=== PATIENT | male | born 1995 | race Caucasian/White ===

== ENCOUNTER 2017-06-17 19:45 | Emergency (ER) | payer OTHER ==
[~2017-06-17] VITALS: Ht 188 cm; Wt 96.0 kg
[~2017-06-17 19:45] MED LIST: HYDR-3533 PO; IBUP800T23 PO; SULF1TAB47 PO; TAMS0.4C67 PO
[2017-06-17 19:47] VITALS: BP 179/95; PULSE 104; RESP 18; TEMP 98.3; O2SAT 100
[2017-06-17] MEDS ORDERED: SODIUM CHLORID 0.9% 500 ML INJ 500 ML IV ONE (20:15)
[2017-06-17] MEDS ORDERED: SODIUM CHLORIDE 0.9% FLUSH 10 ML FLUSH IVF PRN (20:15)
[2017-06-17] MEDS ORDERED: ASPIRIN 81 MG CHEW TAB PO ONE (20:15)
--- NOTE | 2017-06-17 20:29 | PD ---
HPI Chief Complaint: Chest Pain Time Seen by Provider: 19:58 Travel History International Travel<30 days: No Contact w/Intl Traveler<30days: No Traveled to known affect area: No History of Present Illness HPI 22-year-old male presents to the emergency department with history of one month of chest pain and shortness of breath. Patient states he's been seen by his PCP, treated for possible GERD, also had chest x-ray and EKG performed this morning., And diagnosed with possible costochondritis. 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 He is currently only taking aspirin daily. He was on omeprazole which she stopped taking. He denies fever, chills, productive cough, nausea, vomiting, or other symptoms. Patient felt that his symptoms were worse this evening so he came here for further evaluation. He complains of chest tightness, and palpitations. He has anterior left chest pain. Pain is currently about a 3 out of 10. He recently has a 4 months ago, but denies significant stress or anxiety. Patient denies use of stimulants, caffeine, tobacco, alcohol, or drugs. 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 Patient is here with his father. PFSH Past Medical History Medical History: Denies Significant Hx Cancer: No Diabetes: No Glaucoma: No Hepatitis: No Hiatal Hernia: No Hypertension: No Immunizations Current: Yes Thyroid Disease: No Past Surgical History Pacemaker: No Tonsillectomy: Yes Tympanostomy Tube: Yes Social History Alcohol Use: No Tobacco Use: No Substance Use: No Allergies-Medications (Allergen,Severity, Reaction): Coded Allergies: hazelnut (Unverified Allergy, Severe, 02/18/17) Reported Meds & Prescriptions Reported Meds & Active Scripts Active Lortab 5 mg/325 mg (Hydrocodone/Acetaminophen 5 mg/325 mg) 1 Tab 1 Tab PO Q6H PRN Flomax (Tamsulosin HCl) 0.4 Mg Cap 0.4 Mg PO DAILY 7 Days Ibuprofen 800 Mg Tab 800 Mg PO Q6 PRN Bactrim Ds (Trimethoprim/Sulfamethoxazole) Tab 1 Tab PO BID 10 Days Review of Systems Except as stated in HPI: all other systems reviewed are Neg General / Constitutional: No: Fever, Chills Eyes: No: Visual changes HENT: No: Headaches, Vertigo, Lightheadedness, Sore Throat, Rhinitis, Rhinorrhea, Congestion, Nosebleed, Neck Stiffness, Neck Pain, Dental Difficulties, Earache Cardiovascular: Positive: Chest Pain or Discomfort, Palpitations, Tachycardia, No: Irregular Rhythm, Diaphoresis, Syncope, Dyspnea on exertion, Varicosities, Edema, Cyanosis, Varicosities, Phlebitis, Claudication Respiratory: Positive: Shortness of Breath, No: Cough, Wheezing Gastrointestinal: No: Abdominal Pain Genitourinary: No: Dysuria Musculoskeletal: No: Pain Skin: No Rash Neurologic: No: Weakness Psychiatric: No: Depression Endocrine: No: Polydipsia Hematologic/Lymphatic: No: Easy Bruising Physical Exam Narrative GENERAL: Patient appears anxious but in no acute distress. SKIN: Warm and dry. Normal color. Normal turgor. No rash. HEAD: Atraumatic. Normocephalic. EYES: Pupils equal and round. No scleral icterus. No injection or drainage. ENT: No nasal bleeding or discharge. Mucous membranes pink and moist. Pharynx is clear. Airway is patent. NECK: Trachea midline. Supple nontender. No palpable thyroid. CARDIOVASCULAR: Tachycardic rate and normal rhythm. No murmurs gallops or rubs. RESPIRATORY: No accessory muscle use. Clear to auscultation. Breath sounds equal bilaterally. Patient has tenderness with palpation to the left anterior chest wall. No deformities or crepitus noted. GASTROINTESTINAL: Abdomen soft, non-tender, nondistended. Hepatic and splenic margins not palpable. MUSCULOSKELETAL: Extremities without clubbing, cyanosis, or edema. No obvious deformities. NEUROLOGICAL: Awake and alert. No obvious cranial nerve deficits. Motor grossly within normal limits. Five out of 5 muscle strength in the arms and legs. Normal speech. PSYCHIATRIC: Appropriate mood and affect; insight and judgment normal. Data Data Last Documented VS Vital Signs Date Time Temp Pulse Resp B/P (MAP) Pulse Ox O2 Delivery O2 Flow Rate FiO2 06/17/17 20:32 16 100 Room Air 06/17/17 19:47 98.3 104 Orders Orders Electrocardiogram (06/17/17 20:05) Ckmb (Isoenzyme) Profile (06/17/17 20:05) Complete Blood Count With Diff (06/17/17 20:05) Comprehensive Metabolic Panel (06/17/17 20:05) D-Dimer (06/17/17 20:05) Magnesium (Mg) (06/17/17 20:05) Prothrombin Time / Inr (Pt) (06/17/17 20:05) Act Partial Throm Time (Ptt) (06/17/17 20:05) Troponin I (06/17/17 20:05) Ecg Monitoring (06/17/17 20:05) Bilateral Bp Monitoring (06/17/17 20:05) Iv Access Insert/Monitor (06/17/17 20:05) Oximetry (06/17/17 20:05) Oxygen Administration (06/17/17 20:05) Aspirin Chew (Aspirin Chew) (06/17/17 20:15) Sodium Chloride 0.9% Flush (Ns Flush) (06/17/17 20:15) Sodium Chlorid 0.9% 500 Ml Inj (Ns 500 M (06/17/17 20:15) CKMB (06/17/17 20:10) CKMB% (06/17/17 20:10) Labs Laboratory Tests Test 06/17/17 20:10 White Blood Count 9.5 TH/MM3 Red Blood Count 5.70 MIL/MM3 Hemoglobin 16.2 GM/DL Hematocrit 47.8 % Mean Corpuscular Volume 83.8 FL Mean Corpuscular Hemoglobin 28.4 PG Mean Corpuscular Hemoglobin Concent 33.9 % Red Cell Distribution Width 13.4 % Platelet Count 243 TH/MM3 Mean Platelet Volume 9.8 FL Neutrophils (%) (Auto) 69.4 % Lymphocytes (%) (Auto) 22.6 % Monocytes (%) (Auto) 6.8 % Eosinophils (%) (Auto) 0.8 % Basophils (%) (Auto) 0.4 % Neutrophils # (Auto) 6.6 TH/MM3 Lymphocytes # (Auto) 2.1 TH/MM3 Monocytes # (Auto) 0.6 TH/MM3 Eosinophils # (Auto) 0.1 TH/MM3 Basophils # (Auto) 0.0 TH/MM3 CBC Comment DIFF FINAL Differential Comment Prothrombin Time 10.9 SEC Prothromb Time International Ratio 1.1 RATIO Activated Partial Thromboplast Time 30.3 SEC D-Dimer Quantitative (PE/DVT) LESS THAN 0.19 MG/L FEU Blood Urea Nitrogen 11 MG/DL Creatinine 1.21 MG/DL Random Glucose 109 MG/DL Total Protein 8.3 GM/DL Albumin 4.5 GM/DL Calcium Level 9.3 MG/DL Magnesium Level 1.7 MG/DL Alkaline Phosphatase 74 U/L Aspartate Amino Transf (AST/SGOT) 19 U/L Alanine Aminotransferase (ALT/SGPT) 23 U/L Total Bilirubin 0.8 MG/DL Sodium Level 138 MEQ/L Potassium Level 3.2 MEQ/L Chloride Level 106 MEQ/L Carbon Dioxide Level 23.0 MEQ/L Anion Gap 9 MEQ/L Estimat Glomerular Filtration Rate 74 ML/MIN Total Creatine Kinase 159 U/L Creatine Kinase MB LESS THAN 0.5 NG/ML Troponin I LESS THAN 0.02 NG/ML MDM Medical Decision Making Medical Screen Exam Complete: Yes Emergency Medical Condition: Yes Differential Diagnosis Tachycardia. Palpitations. Chest pain. Anxiety. Narrative Course Patient is medically stable at time of exam. EKG and chest x-ray are ordered. Patient refuses chest x-ray as he had one earlier today. I explained to him that I could not visualize this chest x-ray. IV access is obtained the patient's labs are obtained including CBC, CMP, cardiac panel, and coagulation studies as well as a d-dimer. EKG shows sinus rhythm with a rate of [address]-T changes. Patient given 324 mg aspirin by mouth. Patient is given a 500 mL of normal saline bolus. CBC, CMP, cardiac panel, and coagulation studies are all normal. D-dimer is negative. Patient is felt to have muscle skeletal wall pain/costochondritis. Findings were discussed with the patient and he is reassured. Further cardiac workup was not felt warranted based on my history and physical and labs. Recommend rest regular nonsteroidal such as ibuprofen or Aleve for what appears to be costochondritis. Patient can ice this area as needed. Patient can follow up with his heel washer stringing machine operator appointment if he wishes. Patient follow up with his primary care as needed. Patient can return at any time for worsening symptoms. Diagnosis Primary Impression: Anterior chest wall pain Additional Impression: Costochondritis Referrals: [facility] Install[facility] Primary Care Physician Patient Instructions: Chest Wall Pain (ED), Costochondritis (ED), General Instructions Med/Other Pt SpecificInfo: No Meds Exist/No RX given Disposition: 01 DISCHARGE HOME Condition: Stable Wil Pastor Jun 17, 2017 20:29
[2017-06-17 20:32] VITALS: RESP 16; O2SAT 100
[2017-06-17 20:55] LABS: AUTOMATED NEUTROPHIL # 6.6 TH/MM3 (1.8-7.7); BASOPHIL % 0.4 % (0.0-2.0); EOSINOPHIL # 0.1 TH/MM3 (0-0.4); EOSINOPHIL % 0.8 % (0.0-4.0); HEMATOCRIT 47.8 % (39.0-51.0); HEMO FLAGS DIFF FINAL; LYMPH % 22.6 % (9.0-44.0); LYMPHOCYTE # 2.1 TH/MM3 (1.0-4.8); MEAN CELL VOLUME 83.8 FL (80.0-100.0); MEAN CORPUSCULAR HEMOGLOBIN 28.4 PG (27.0-34.0); MEAN CORPUSCULAR HGB CONC 33.9 % (32.0-36.0); MONO % 6.8 % (0.0-8.0); NEUT % 69.4 % (16.0-70.0); PLATELET COUNT 243 TH/MM3 (150-450); RED CELL DISTRIBUTION WIDTH 13.4 % (11.6-17.2); WHITE BLOOD COUNT 9.5 TH/MM3 (4.0-11.0)
[2017-06-17 21:03] LABS: APTT (PATIENT) 30.3 SEC (24.3-30.1); INTERNATIONAL NORMALIZED RATIO 1.1 RATIO; PROTHROMBIN TIME - PATIENT 10.9 SEC (9.8-11.6)
[2017-06-17 21:09] LABS: ANION GAP 9 MEQ/L (5-15); AST (GOT) 19 U/L (15-37); BLOOD UREA NITROGEN 11 MG/DL (7-18); CHLORIDE 106 MEQ/L (98-107); GLOMERULAR FILTRATION RATE 74 ML/MIN (>89); MAGNESIUM 1.7 MG/DL (1.5-2.5); POTASSIUM 3.2 MEQ/L (3.5-5.1); SODIUM (NA) 138 MEQ/L (136-145)
[2017-06-17 21:10] LABS: ALT (GPT) 23 U/L (12-78)
[2017-06-17 21:14] LABS: ALKALINE PHOSPHATASE 74 U/L (45-117); CREATINE KINASE 159 U/L (39-308); TOTAL BILIRUBIN ADULT 0.8 MG/DL (0.2-1.0)
[2017-06-17 21:26] LABS: CKMB LESS THAN 0.5 NG/ML (0.5-3.6)
--- NOTE | 2017-06-18 15:44 | EKG ---
Date Performed: 06/17/2017 Time Performed: 20:10:09 PTAGE: 22 years EKG: Sinus rhythm POSSIBLE LEFT ATRIAL ENLARGEMENT POSSIBLE RIGHT VENTRICULAR CONDUCTION DELAY BORDERLINE ECG NO PREVIOUS TRACING DOCTOR: Jeffry Estrella Interpretating Date/Time 06/18/2017 15:43:17
== END 2017-06-17 22:28 | disposition home or self-care (01) ==
LOC: NEPC 19:45
DX: R07.89 Other chest pain (principal); M94.0 Chondrocostal junction syndrome [Tietze]; R00.0 Tachycardia, unspecified; R00.2 Palpitations; Z79.899 Other long term (current) drug therapy; Z79.82 Long term (current) use of aspirin
CPT/HCPCS: 80053; 82550; 82552; 83735; 84484; 85025; 85379; 85610; 85730; 93005; 96360; 96361; 99284; J7040